=== PATIENT | male | born 1960 | race Caucasian/White ===

== ENCOUNTER 2019-05-01 13:44 | Inpatient (IN) | payer MEDICAID ==
[~2019-05-01] VITALS: Ht 185.4 cm; Wt 85.7 kg
[~2019-05-01 13:44] MED LIST: GABA-531 PO; HYDR-4031 PO; INSU100C4 SQ; OXCA150T28 PO; OXCA300T29 PO; PANT40TA25 PO; PROP10TA73 PO; RISPC25 IM
[2019-05-01] MEDS ORDERED: LORazepam 2 MG TABLET PO ONE (15:00)
[2019-05-01] MEDS ORDERED: ZOLPIDEM TARTRATE 10 MG TABLET PO PRN (15:15)
[2019-05-01 15:41] LABS: BASOPHILS % (AUTO) 0.4 % (0.0-2.0); EOSINOPHILS % (AUTO) 0.6 % (1.0-6.0); HEMATOCRIT 50.8 % (41-53); HEMOGLOBIN 17.4 g/dL (13.5-17.5); LYMPHOCYTES # (AUTO) 1.6 K/uL (1.0-4.8); LYMPHOCYTES % (AUTO) 15.5 % (22.0-44.0); MEAN CORPUSCULAR HEMOGLOBIN 31.7 pg (26.0-34.0); MEAN CORPUSCULAR HGB CONC 34.3 G/dL (31.0-37.0); MEAN CORPUSCULAR VOLUME 92 fL (80-100); MONOCYTES # (AUTO) 0.8 K/uL (0.1-1.0); MONOCYTES % (AUTO) 7.7 % (2.0-9.0); NEUTROPHILS # (AUTO) 7.7 K/uL (1.8-7.7); NEUTROPHILS % (AUTO) 75.8 % (40.0-70.0); PLATELET COUNT (AUTO) 228 K/uL (150-450); RED CELL DISTRIBUTION WIDTH 13.5 % (11.5-14.5)
[2019-05-01 15:55] LABS: ANION GAP 6 mmol/L (8-16); CALCIUM, TOTAL 10.1 mg/dL (8.8-10.5); CARBON DIOXIDE 34 mmol/L (22-29); CHLORIDE 96 mmol/L (98-107); CREATININE 1.01 mg/dL (0.60-1.30); GLOMERULAR FILTR. RATE CALC > 60 mL/min (>60); GLUCOSE,RANDOM 197 mg/dL (70-110); POTASSIUM 3.8 mmol/L (3.5-5.1); SODIUM SERUM 136 mmol/L (136-145); UREA NITROGEN, BLOOD 9 mg/dL (7-18)
[2019-05-01 15:59] LABS: AMPHET/METH SCREEN,URINE POSITIVE (NEGATIVE); BARBITURATE SCREEN, URINE NEGATIVE (NEGATIVE); BENZODIAZEPINES SCREEN,URINE NEGATIVE (NEGATIVE); CANNABINOID SCREEN,URINE POSITIVE (NEGATIVE); COCAINE SCREEN,URINE NEGATIVE (NEGATIVE); METHADONE SCREEN, URINE NEGATIVE (NEGATIVE); OPIATE SCREEN,URINE NEGATIVE (NEGATIVE)
[2019-05-01 16:00] LABS: ALANINE AMINOTRANSFERASE 34 U/L (12-78); ALBUMIN 4.2 g/dL (3.4-5.0); ALKALINE PHOSPHATASE 77 U/L (46-116); ASPARTATE AMINOTRANSFERASE 24 U/L (15-37); BILIRUBIN,TOTAL 0.7 mg/dL (0.1-1.0)
[2019-05-01 16:03] LABS: PHENCYCLIDINE SCREEN,URINE NEGATIVE (NEGATIVE)
[2019-05-01 17:40] VITALS: BP 138/94
[2019-05-01] MEDS ORDERED: NICOTINE 21 MG/24 HOUR PATCH TD PRN (19:15)
[2019-05-01] MEDS ORDERED: DEXTROSE 50%-WATER 25 GM/50 ML SYRINGE IVP PRN (19:15)
[2019-05-01] MEDS: LORazepam 2 MG TABLET PO PRN (19:22)
[2019-05-01] MEDS ORDERED: PNEUMOCOCCAL VACCINE POLYVALENT 0.5 ML VIAL [PPSV23] IM ONE (19:45)
[2019-05-01] MEDS ORDERED: INFLUENZA VIRUS VACCINE QVS 2019-20 (3YR+)/PF 60 MCG/0.5 ML SYRINGE IM ONE (19:45)
[2019-05-01 20:15] LABS: GLUCOMETER DEV NAME(LOC) 3E.C; GLUCOSE,POINT OF CARE 252 MG/DL (70-110)
[2019-05-01] MEDS: INSULIN LISPRO 100 UNITS/ML SQ PRN (20:24)
[2019-05-02] MEDS: LORazepam 2 MG TABLET PO PRN ×3 (03:24→16:26)
[2019-05-02] MEDS: HALOPERIDOL 5 MG TABLET PO PRN ×3 (03:24→16:26)
[2019-05-02 06:59] LABS: GLUCOMETER DEV NAME(LOC) 3E.C; GLUCOSE,POINT OF CARE 242 MG/DL (70-110)
[2019-05-02] MEDS: INSULIN LISPRO 100 UNITS/ML SQ PRN ×4 (07:03→20:13)
[2019-05-02 08:44] LABS: CHOL/HDL RATIO 3.1 (4.2-7.3)
[2019-05-02 09:57] VITALS: BP 146/91
[2019-05-02 12:04] LABS: GLUCOMETER DEV NAME(LOC) 3E.C; GLUCOSE,POINT OF CARE 263 MG/DL (70-110)
[2019-05-02 16:36] LABS: GLUCOMETER DEV NAME(LOC) 3E.C; GLUCOSE,POINT OF CARE 262 MG/DL (70-110)
[2019-05-02 20:11] LABS: GLUCOMETER DEV NAME(LOC) 3E.C; GLUCOSE,POINT OF CARE 248 MG/DL (70-110)
[2019-05-02] MEDS: OXcarbazepine 300 MG TABLET PO SCH (20:11)
[2019-05-02] MEDS: GABAPENTIN 300 MG CAPSULE PO SCH (20:12)
[2019-05-02] MEDS ORDERED: DOCUSATE SODIUM 100 MG CAPSULE PO PRN (22:30)
[2019-05-02] MEDS ORDERED: BACITRACIN 28.4 GM OINTMENT TP PRN (22:30)
[2019-05-02] MEDS ORDERED: MAG HYDROX/AL HYDROX/SIMETH ES 30 ML SUSPENSION UDCUP PO PRN (22:30)
[2019-05-02] MEDS ORDERED: IBUPROFEN 600 MG TABLET PO PRN (22:30)
[2019-05-02] MEDS ORDERED: ONDANSETRON HCL 4 MG TABLET PO PRN (22:30)
[2019-05-02] MEDS ORDERED: ALBUTEROL SULFATE HFA 90 MCG/PUFF 8 GM INHALER IH PRN (22:30)
[2019-05-02] MEDS ORDERED: PETROLATUM,WHITE 28 GM JELLY TP PRN (22:30)
[2019-05-02] MEDS ORDERED: BENZOCAINE/MENTHOL LOZENGE MM PRN (22:30)
[2019-05-02] MEDS ORDERED: ACETAMINOPHEN 325 MG TABLET PO PRN (22:30)
[2019-05-02] MEDS ORDERED: OMEPRAZOLE 20 MG CAPSULE PO PRN (22:30)
[2019-05-02] MEDS ORDERED: LOPERAMIDE HCL 2 MG CAPSULE PO PRN (22:30)
[2019-05-02] MEDS ORDERED: CloNIDine HCL 0.1 MG TABLET PO PRN (22:30)
[2019-05-02] MEDS ORDERED: MAGNESIUM HYDROXIDE SUSPENSION 30 ML UDCUP PO PRN (22:30)
[2019-05-03 06:14] LABS: GLUCOMETER DEV NAME(LOC) 3E.C; GLUCOSE,POINT OF CARE 199 MG/DL (70-110)
[2019-05-03] MEDS: INSULIN LISPRO 100 UNITS/ML SQ PRN ×4 (07:06→20:16)
[2019-05-03] MEDS: MetFORMIN HCL 500 MG TABLET PO SCH ×2 (07:07→17:22)
[2019-05-03 08:03] VITALS: BP 160/102
[2019-05-03] MEDS: GABAPENTIN 300 MG CAPSULE PO SCH ×5 (08:52→20:14)
[2019-05-03] MEDS: OXcarbazepine 300 MG TABLET PO SCH ×3 (08:52→15:58)
[2019-05-03] MEDS: HALOPERIDOL 5 MG TABLET PO PRN ×2 (08:52→15:58)
[2019-05-03] MEDS: LORazepam 2 MG TABLET PO PRN ×3 (08:52→20:13)
[2019-05-03] MEDS ORDERED: GABAPENTIN 300 MG CAPSULE PO SCH (09:00)
[2019-05-03 12:18] LABS: GLUCOMETER DEV NAME(LOC) 3E.C; GLUCOSE,POINT OF CARE 264 MG/DL (70-110)
[2019-05-03 16:11] LABS: GLUCOMETER DEV NAME(LOC) 3E.C; GLUCOSE,POINT OF CARE 254 MG/DL (70-110)
[2019-05-03 16:16] VITALS: BP 141/82
[2019-05-03 20:23] LABS: GLUCOMETER DEV NAME(LOC) 3E.C; GLUCOSE,POINT OF CARE 266 MG/DL (70-110)
[2019-05-04] MEDS: MetFORMIN HCL 500 MG TABLET PO SCH (06:50)
[2019-05-04 06:51] LABS: GLUCOMETER DEV NAME(LOC) 3E.C; GLUCOSE,POINT OF CARE 193 MG/DL (70-110)
[2019-05-04] MEDS: INSULIN LISPRO 100 UNITS/ML SQ PRN ×2 (06:51→11:54)
[2019-05-04] MEDS: GABAPENTIN 300 MG CAPSULE PO SCH ×2 (09:17→13:03)
[2019-05-04] MEDS: OXcarbazepine 300 MG TABLET PO SCH (09:18)
[2019-05-04 12:01] LABS: GLUCOMETER DEV NAME(LOC) 3E.C; GLUCOSE,POINT OF CARE 283 MG/DL (70-110)
[2019-05-04] MEDS ORDERED: PALI234D IM (12:16)
[2019-05-04] MEDS ORDERED: METF-960 PO (12:17)
[2019-05-04 13:09] VITALS: BP 129/76
[2019-05-29] MEDS ORDERED: PALIPERIDONE PALMITATE 234 MG/1.5 ML SYRINGE IM SCH (09:00)
== END 2019-05-04 14:00 | disposition home or self-care (01) | DRG 885 ==
LOC: EMS 13:45 → 3EC 15:22
PROVIDERS: ADMIT Psychiatry & Neurology Psychiatry; ATTEND Psychiatry & Neurology Psychiatry
DX: F31.2 Bipolar disorder, current episode manic severe with psychotic features (principal); E11.9 Type 2 diabetes mellitus without complications; F17.210 Nicotine dependence, cigarettes, uncomplicated; F15.10 Other stimulant abuse, uncomplicated; F12.90 Cannabis use, unspecified, uncomplicated; K59.00 Constipation, unspecified; G47.00 Insomnia, unspecified; Z56.0 Unemployment, unspecified; Z91.14 Patient's other noncompliance with medication regimen; Z71.6 Tobacco abuse counseling; Z88.0 Allergy status to penicillin
CPT/HCPCS: 90686; 90732; G0480